=== PATIENT | female | born 1950 | race Caucasian/White ===

== ENCOUNTER → 2018-04-01 | Outpatient (CLI) | payer BC ==
[~2018-04-01] MED LIST: ACTOS 15MG TAB15 MG PO; ASPIRIN E.C. 8181 MG PO; BENICAR; BENICAR HCT 251 TAB PO; CALTRATE-600 W600 MG PO; CANA100T PO; CLARITIN 1010 MG/TAB PO; COZAAR100 MG PO; DYRENIUM 50MG C50 MG PO; FORTAMET; JANUVIA 100MG100 MG PO; LANTUS SOLOS100 U/ML SQ; LEXAPRO 10MG10 MG PO; MAXZIDE 50 MG-71 TAB PO; MICRO-K 1010 MEQ PO; MULTIPLE VITAMI1 CAP PO; NOVOLOG FLEX100 U/ML SQ; POTASSIUM CL 220 MEQ PO; PREMARIN 0.60.625 MG PO; PRILOSEC 20MG20 MG PO; SYNTHROID0.125 MG/T PO; SYNTHROID0.175 MG PO; WELLBUTRIN SR150 M1 PO; ZANTAC 7575 MG PO; ZOCOR 20MG20 MG PO; ZOCOR 40MG40 MG PO; ZYRTEC 10MG10 MG PO
== END ==
LOC: MC.RAD 08:55
DX: Z12.31 Encounter for screening mammogram for malignant neoplasm of breast (principal); N64.53 Retraction of nipple; R92.1 Mammographic calcification found on diagnostic imaging of breast; Z41.1 Encounter for cosmetic surgery

== ENCOUNTER → 2021-07-10 | Outpatient (CLI) | payer MEDICARE, OTHER | LOC: MC.RAD 13:00 | DX: Z12.31 Encounter for screening mammogram for malignant neoplasm of breast (principal); N63.10 Unspecified lump in the right breast, unspecified quadrant; R92.0 Mammographic microcalcification found on diagnostic imaging of breast; Z98.890 Other specified postprocedural states ==

== ENCOUNTER → 2021-07-18 | Outpatient (CLI) | payer MEDICARE, OTHER | LOC: MC.RAD 14:00 | DX: N64.1 Fat necrosis of breast (principal); N63.10 Unspecified lump in the right breast, unspecified quadrant ==

== ENCOUNTER → 2021-07-24 | Outpatient (CLI) | payer MEDICARE, OTHER | LOC: MC.RAD 10:46 | DX: N63.10 Unspecified lump in the right breast, unspecified quadrant (principal); Z98.82 Breast implant status ==

== ENCOUNTER → 2021-09-09 | Outpatient (CLI) | payer MEDICARE ==
[~2021-09-09] MED LIST changes: +BENICAR40 MG; +CYMBALTA 30MG30 MG; +NORCO 325 MG-51 TAB PO; +TRAVATAN Z 2.52.5 ML OU; +WELLBUTRIN 75MG75 MG PO
== END ==
LOC: MC.RAD 13:00
DX: C50.911 Malignant neoplasm of unspecified site of right female breast (principal); R59.0 Localized enlarged lymph nodes
CPT/HCPCS: A9520

== ENCOUNTER 2021-09-10 06:53 | Day surgery (SDC) | payer MEDICARE ==
[~2021-09-10] VITALS: Ht 160 cm; Wt 116.6 kg
[2021-09-10] VITALS (8 sets, daily range): BP systolic 97–140; BP diastolic 41–89; PULSE 63–66; TEMP 97.5–98
[~2021-09-10 06:53] MED LIST changes: -BENICAR40 MG; -CYMBALTA 30MG30 MG; -NORCO 325 MG-51 TAB PO; -TRAVATAN Z 2.52.5 ML OU; -WELLBUTRIN 75MG75 MG PO
[2021-09-10] MEDS ORDERED: BENICAR40 MG (08:14)
[2021-09-10] MEDS ORDERED: CYMBALTA 30MG30 MG (08:15)
[2021-09-10] MEDS ORDERED: WELLBUTRIN 75MG75 MG PO (08:16)
[2021-09-10] MEDS ORDERED: TRAVATAN Z 2.52.5 ML OU (08:17)
[2021-09-10] MEDS ORDERED: NORCO 325 MG-51 TAB PO (11:20)
--- NOTE | 2021-09-10 11:35 | NUR ---
PATIENT TRANSPORTED PER CART FROM PACU TO [facility] ACCOMPANIED BY TOPPER PACKER TO BAY 1. MONITORS APPLIED. O2 CONTINUES AT 2 LITERS PER NASAL CANNULA. VSS. PATIENT IS ALERT AND TALKING WITH STAFF. DENIES DISCOMFORT AND NAUSEA. DRESSING TO CHEST IS CDI. 1140 PATIENT GIVEN ICE WATER TO DRINK.
--- NOTE | 2021-09-10 11:46 | NUR ---
VSS ON 2 LITERS. PATIENT TALKS WITH DAUGHTER. PATIENT DENIES DISCOMFORT AND NASUEA. PATIENT GIVEN COFFEE AND MUFFIN TO EAT. PATIENT STATES THAT ARM IS WAKING UP.
--- NOTE | 2021-09-10 12:00 | NUR ---
VSS ON ROOM AIR. PATIENT TOLERATES FOOD AND DRINK WITHOUT PROBLEMS. VISITS WITH DAUGHTER.
--- NOTE | 2021-09-10 12:15 | NUR ---
VSS ON ROOM AIR. DRESSING TO RIGHT UNDER ARM IS CDI.
--- NOTE | 2021-09-10 12:30 | NUR ---
BLOOD PRESSURE LOWER. CUFF TO ARM IS DISPLACED. PATIENT ALERT AND TALKING. PATIENT DENIES LIGHTHEADNESS AND NAUSEA. PATIENT STATES SHE IS READY TO GO TO BATHROOM. PATIENT SITS ON SIDE OF CART AND WAITS. DENIES LIGHTHEADNESS. PATIENT STANDS WITHOUT PROBLEMS. PATIENT AMBULATES WITH STEADY GAIT TO RESTROOM AND VOIDS WITHOUT PROBLEMS. PATIENT AMBULATES BACK TO CART WITHOUT PROBLEMS AND SITS ON CART.
--- NOTE | 2021-09-10 13:00 | NUR ---
VSS ON ROOM AIR. PATIENT TALKS WITH STAFF. 1303 IV DC'D WITH CATHETER TIP INTACT. PRESSURE AND BANDAGE APPLIED. 1305 DISCHARGE INSTRUCTIONS GIVEN VERBAL AND DISCHARGE PACKET PROVIDED TO PATIENT AND DAUGHTER. QUESTIONS ANSWERED AND THEY VOICED UNDERSTANDING. PATIENT CHANGES INTO STREET CLOTHES. 1315 PATIENT DISCHARGED PER WHEELCHAIR ACCOMPANIED BY AMB RN TO PRIVATE VECHILE DRIVEN BY DAUGHTER.
== END 2021-09-10 13:15 | disposition home or self-care (01) ==
LOC: SDCO 06:53
DX: C50.911 Malignant neoplasm of unspecified site of right female breast (principal); I10 Essential (primary) hypertension; E11.9 Type 2 diabetes mellitus without complications; G47.33 Obstructive sleep apnea (adult) (pediatric); E78.00 Pure hypercholesterolemia, unspecified; G47.30 Sleep apnea, unspecified; Z79.4 Long term (current) use of insulin; Z79.899 Other long term (current) drug therapy; Z79.82 Long term (current) use of aspirin; Z79.890 Hormone replacement therapy; Z99.89 Dependence on other enabling machines and devices; Z90.710 Acquired absence of both cervix and uterus; Z80.3 Family history of malignant neoplasm of breast; Z80.0 Family history of malignant neoplasm of digestive organs
CPT/HCPCS: A4648; J1885; J2250; J2704; J3010; J7030